=== PATIENT | female | born 2005 | race Caucasian/White ===

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

== ENCOUNTER 2024-09-09 19:08 | Emergency (ER) | payer OTHER ==
[~2024-09-09] VITALS: Ht 172.7 cm; Wt 80.3 kg
[2024-09-09 20:38] LABS: BILIRUBIN Negative (Negative); BLOOD 1+ (Negative); CLARITY Clear (Clear); COLOR Dark Yellow (Yellow); GLUCOSE Negative (Negative); KETONE Negative (Negative); LEUKO ESTERASE 3+ (Negative); NITRITE Positive (Negative); PH 6.5 (4.5-8.0)
[2024-09-09 20:46] LABS: BACTERIA 2+; WBC 31-40 wbc/hpf (0-5)
[2024-09-09] MEDS ORDERED: AMOX-CLAV 875-1 EACH PO (21:26)
[2024-09-09] MEDS ORDERED: Amoxicillin/Clavulanate Pota 875 MG TAB PO ONE (21:30)
== END 2024-09-09 22:20 | disposition home or self-care (01) ==
LOC: ED 19:08
PROVIDERS: Nurse Practitioner Family
DX: N39.0 Urinary tract infection, site not specified (principal); Z88.8 Allergy status to other drugs, medicaments and biological substances; Z79.899 Other long term (current) drug therapy